=== PATIENT | female | born 1975 | race African-American/Black ===

== ENCOUNTER 2017-03-27 07:04 | Emergency (ER) | payer BC, MEDICAID ==
[~2017-03-27] VITALS: Ht 162.6 cm; Wt 91.0 kg
[2017-03-27] MEDS ORDERED: VERA240C2 PO (07:32)
[2017-03-27] MEDS ORDERED: LISI10TA5 PO (07:32)
[2017-03-27 09:24] LABS: BASOPHILS % 0.4 % (0.0-2.0); EOSINOPHILS % 3.9 % (0.0-5.0); HEMATOCRIT. 38.7 % (36.0-48.0); HEMOGLOBIN. 12.1 g/dL (12.0-16.0); LYMPHOCYTES % 18.8 % (20.0-50.0); MEAN CORPUSCULAR HEMOGLOBIN 22.8 pg (28.0-32.0); MEAN CORPUSCULAR VOLUME 72.8 fL (81.0-99.0); MEAN PLATELET VOLUME 9.3 fl (7.4-10.4); MONOCYTES % 12.5 % (2.0-8.0); NEUTROPHILS % 64.4 % (40.0-76.0); PLATELET 209 x1000/uL (130-400); RED BLOOD CELL COUNT 5.32 mill/uL (4.2-5.4); RED CELL DISTRIBUTION WIDTH 15.1 % (11.6-14.6)
[2017-03-27 09:29] LABS: CHLORIDE 106 mEq/L (98-107)
[2017-03-27 09:34] LABS: CARBON DIOXIDE 28 mEq/L (21-32)
[2017-03-27 11:47] VITALS: BP 199/84
== END 2017-03-27 11:48 | disposition home or self-care (01) ==
LOC: ER 07:40
DX: M79.605 Pain in left leg (principal); I10 Essential (primary) hypertension; Z98.890 Other specified postprocedural states
CPT/HCPCS: 36415; 73590; 80053; 81025; 85025; 85610; 85651; 93971; 99285; Z7610

== ENCOUNTER 2017-05-21 07:08 | Emergency (ER) | payer BC, MEDICAID ==
[~2017-05-21] VITALS: Ht 162.6 cm; Wt 136.0 kg
[~2017-05-21 07:08] MED LIST: LISI10TA5 PO; VERA240C2 PO
[2017-05-21] MEDS ORDERED: MAGNESIUM/ALUMINUM HYDROXIDE/SIMETHICONE 30ML UDC PO STA (09:21)
[2017-05-21] MEDS ORDERED: ONDANSETRON 4MG ODT PO STA (09:21)
[2017-05-21] MEDS ORDERED: MORPHINE SULFATE 10 MG/ML CPJ IM ONE ×2 (09:30→10:45)
[2017-05-21] MEDS ORDERED: FAMOTIDINE 20MG TABLET PO ONE (09:30)
[2017-05-21 09:56] LABS: BASOPHILS % 0.8 % (0.0-2.0); HEMATOCRIT. 38.9 % (36.0-48.0); HEMOGLOBIN. 12.1 g/dL (12.0-16.0); LYMPHOCYTES % 25.6 % (20.0-50.0); MEAN CORPUSCULAR HEMOGLOBIN 22.5 pg (28.0-32.0); MEAN PLATELET VOLUME 9.7 fl (7.4-10.4); MONOCYTES % 12.6 % (2.0-8.0); PLATELET 225 x1000/uL (130-400); RED CELL DISTRIBUTION WIDTH 14.7 % (11.6-14.6)
[2017-05-21 09:59] LABS: INR 0.9; PROTHROMBIN TIME 9.7 sec
[2017-05-21 10:04] LABS: CARBON DIOXIDE 31 mEq/L (21-32); CHLORIDE 105 mEq/L (98-107)
[2017-05-21 10:22] LABS: CLARITY URINE CLEAR (CLEAR); COLOR URINE YELLOW (YELLOW); GLUCOSE URINE NEGATIVE (NEGATIVE); KETONES URINE NEGATIVE (NEGATIVE); LEUKOCYTE ESTERASE URINE NEGATIVE (NEGATIVE); NITRITE URINE NEGATIVE (NEGATIVE); OCCULT BLOOD URINE NEGATIVE (NEGATIVE); PH URINE 7.5 (4.5-8.0); PROTEIN URINE NEGATIVE (NEGATIVE); SPECIFIC GRAVITY URINE 1.018 (1.005-1.030); UROBILINOGEN URINE 0.2 E.U./dL (0.2-1.0)
[2017-05-21 10:52] LABS: *AMPHETAMINES SCREEN URINE NEGATIVE (NEGATIVE); *BARBITURATES SCREEN URINE NEGATIVE (NEGATIVE); *BENZODIAZEPINES SCREEN URINE NEGATIVE (NEGATIVE); *COCAINE SCREEN URINE NEGATIVE (NEGATIVE); CANNABINOID URINE SCREEN NEGATIVE (NEGATIVE); METHADONE URINE SCREEN NEGATIVE (NEGATIVE); OPIATES URINE SCREEN NEGATIVE (NEGATIVE); PHENCYCLIDINE URINE SCREEN NEGATIVE (NEGATIVE)
[2017-05-21 12:00] VITALS: BP 162/94
== END 2017-05-21 12:50 | disposition home or self-care (01) ==
LOC: ER 09:24
DX: R10.13 Epigastric pain (principal); I10 Essential (primary) hypertension
CPT/HCPCS: 36415; 71010; 80053; 80305; 81003; 81025; 83690; 85025; 85610; 93005; 96372; 99285; J2270; Q0162; Z7610